=== PATIENT | male | born 1960 | race Caucasian/White ===

== ENCOUNTER 2021-08-14 09:50 | Outpatient (CLI) | payer MEDICARE, BC, SELFPAY | END 2021-08-14 09:51 | disposition home or self-care (01) | LOC: ANHAUDIO 09:52 | DX: H91.90 Unspecified hearing loss, unspecified ear (principal) | CPT/HCPCS: 99199 ==

== ENCOUNTER 2021-08-24 12:22 | Outpatient (RCR) | payer MEDICARE, BC, SELFPAY | END 2021-08-24 23:59 | disposition home or self-care (01) | LOC: ANHAUDIO 12:22 | DX: Z46.1 Encounter for fitting and adjustment of hearing aid (principal) | CPT/HCPCS: V5264 ==

== ENCOUNTER 2022-01-15 14:52 | Outpatient (RCR) | payer MEDICARE, BC, SELFPAY | END 2022-01-15 23:59 | disposition home or self-care (01) | LOC: ANHAUDIO 14:52 | PROVIDERS: Visit Provider Family Medicine | DX: Z46.1 Encounter for fitting and adjustment of hearing aid (principal) | CPT/HCPCS: 99199 ==

== ENCOUNTER 2023-07-09 10:28 | Emergency (ER) | payer MEDICARE, BC, SELFPAY ==
--- NOTE | ~2023-07-09 | XR_ITS ---
XR chest 2V INDICATION: Wheezing.] Heart rate. TECHNIQUE: 2 view chest. FINDINGS: No prior studies for comparison. There is mild bilateral interstitial prominence and peribronchial cuffing. There is no focal consoli dation, pleural effusion, or pneumothorax. The cardiomediastinal silhouette is normal. IMPRESSION: 1. Findings most consistent with bronchiolitis versus an atypical or viral pneumonia. Reviewed, dictated and finalized at location B. PROFESSOR IMPRESSION: 1. Findings most consistent with bronchiolitis versus an atypical or viral [facility].
[2023-07-09 10:33] VITALS: BP 100/66; PULSE 97; RESP 18; TEMP 36.4; O2SAT 98
[2023-07-09 13:04] VITALS: PULSE 95; RESP 18
[2023-07-09] MEDS: IPRATROPIUM BR 0.02% INH SOLN 0.5 MG/2.5 ML VIAL INHALATION (13:04)
[2023-07-09] MEDS: ALBUTEROL SULFATE NEB 2.5 MG/3 ML INH INHALATION (13:04)
[2023-07-09 13:16] VITALS: PULSE 98; RESP 18
--- NOTE | 2023-07-09 14:28 | ED.GENADULT ---
HPI - General Adult General Chief complaint: Upper Respiratory Infection Stated complaint: abnormal VS Time Seen by Provider: 07/09/23 12:32 History of Present Illness HPI narrative: Patient is a 62-year-old male who presents to the ER with reports of abnormal breathing. The nurse at his care facility noticed that he was wheezing more than typical today. Patient has Alzheimer's and Down syndrome and cannot communicate. There is no reports of recent fever or illness. He has not been coughing. His primary care doctor's office is not open today so they came here for further evaluation. Related Data Home Medications Medication Instructions Recorded Confirmed aspirin 81 mg tablet,delayed 81 mg PO DAILY 07/26/21 06/13/22 release (Adult Low Dose Aspirin) mometasone 0.1 % topical ointment 1 applic topical DAILY 07/26/21 06/13/22 guwfxyrk-reg-glkkm acid 0.4 1 tablet PO DAILY 07/26/21 06/13/22 mg-lycopene 300 mcg-lutein 250 mcg tablet (Jesse Gant) Allergies Allergy/AdvReac Type Severity Reaction Status Date / Time No Known Allergies Allergy Verified 07/03/23 13:03 Review of Systems Review of Systems: ROS unobtainable: Yes unobtainable due to mental status PMFSH Past Medical History Medical History Alzheimer's dementia Aphasia Down syndrome Incontinence of bowel Incontinence of urine SNHL (sensorineural hearing loss) Family History Family History Mother Hypertension Father Lung cancer Sibling Hypertension Social History Social History (Updated 07/03/23 @ 13:03 by Charis Cottrell) Social History: Single Smoking status: Never smoker Second hand tobacco smoke exposure: No Alcohol intake: never Substance use: never Substance use type: does not use Do You Feel Safe in your Home?: Yes Lack of Transportation: No Lack of Food: Never True Current Housing: I Have Housing Concerned About Future Housing: No Difficulty Paying Gas/Electric Bills: No Difficulty Paying for Meds: No Currently Unemployed: YES Education: Decline to Answer Difficulty w/ Childcare or Family Care: No Living arrangements: assisted living Occupation/Education: retired Gender identity (if verbalized by the patient): Male Sexual Orientation (if Verbalized by the Patient): Straight or Heterosexual Exam Narrative: GENERAL: Chronically ill-appearing, well-nourished, and in no acute distress. HEAD: Normocephalic, atraumatic. ENT: Mucous membranes moist. NECK: Supple. CHEST: Mild wheezing in all lung gonzalez however it seems to be referred upper respiratory rattling when listening to the trachea. No respiratory distress. HEART: Regular rate and rhythm. Normal peripheral pulses. ABDOMEN: Soft, nontender, nondistended. EXTREMITIES: Normal range of motion. No edema. NEURO: Alert and oriented x3. PSYCH: Normal mood and affect. Course Course Emergency Course: patient resting comfortably in a been ambulatory without hypoxia. He does have influenza. Will start on Tamiflu as well as a steroid burst and albuterol for bronchitis. Vital Signs Vital signs: Vital Signs Temperature 97.6 F 07/09/23 10:33 Pulse Rate 97 07/09/23 10:33 Respiratory Rate 18 07/09/23 10:33 Blood Pressure 100/66 07/09/23 10:33 Pulse Oximetry 98 07/09/23 10:33 Oxygen Delivery Room Air 07/09/23 10:33 Temperature 97.6 F 07/09/23 10:33 Pulse Rate 100 07/09/23 14:50 Respiratory Rate 20 07/09/23 14:50 Blood Pressure 100/66 07/09/23 10:33 Pulse Oximetry 96 07/09/23 14:50 Oxygen Delivery Room Air 07/09/23 13:30 Medical Decision Making Vital Signs Vital Signs: Vital Signs Temperature 97.6 F 07/09/23 10:33 Pulse Rate 97 07/09/23 10:33 Respiratory Rate 18 07/09/23 10:33 Blood Pressure 100/66 07/09/23 10:33 Pulse Oximetry 98 07/09/23 10:33
[2023-07-09 14:33] LABS: Influenza A QL RT-PCR Positive (Negative); Influenza B QL RT-PCR Negative (Negative); RSV RNA, RT-PCR Negative (Negative); SARS-CoV-2 RNA PCR Negative (Negative)
[2023-07-09 14:50] VITALS: PULSE 100; RESP 20; O2SAT 96
[2023-07-09 16:10] VITALS: BP 123/76; PULSE 60; RESP 16; O2SAT 99
== END 2023-07-09 16:10 | disposition home or self-care (01) ==
PROVIDERS: Emergency Provider Emergency Medicine; PCP Family Medicine
DX: J10.1 Influenza due to other identified influenza virus with other respiratory manifestations (principal); J40 Bronchitis, not specified as acute or chronic; G30.9 Alzheimer's disease, unspecified; F02.80 Dementia in other diseases classified elsewhere, unspecified severity, without behavioral disturbance, psychotic disturbance, mood disturbance, and anxiety; Q90.9 Down syndrome, unspecified; R47.01 Aphasia; Z79.82 Long term (current) use of aspirin; Z20.822 Contact with and (suspected) exposure to COVID-19
CPT/HCPCS: 71046; 87637; 94640; 94664; 99283

== ENCOUNTER 2023-07-31 09:35 | Outpatient (RCR) | payer MEDICARE, BC, SELFPAY ==
--- NOTE | 2023-07-31 10:30 | PTOPEVAL1 ---
Assessment and note entered by [facility] Evaluation Information Assessment Status Evaluation Diagnosis functional decline, generalized weakness Onset 07/17/23 Subjective Information Pt. caregiver, Fanta, is present. Pt. is non- verbal. She reports that the pt. is new to placement in an assisted living facility that provides 24 hour care. The caregiver reports that the pt. is mainly present at therapy today to determine his level of safety and if any equipment is required for his care. She states that the pt. is not currently using a walker or a cane. She states that as a caregiver she is assisting with bathing and dressing to guide him. She reports that during the day pt. activity includes playing with legos. She reports that they have to monitor pt. eating to be sure that he does not eat too fast. She reports that the doctors concern was to establish a baseline of the pt. current functional status. Reported Pain Level Pain Score 0: Self Report Assessment PT Clinical Summary Mr. Wick enters the clinic for evaluation of mobility with a PMH including alzheimers, down syndrome and aphasia. He currently resides in a facility that provides 24 hour care. Pt. currently presents with high fall risk according to the [facility]. Lower extremity strength is adequate, however accurate assessment is difficult to attain due to pt. inability to follow basic instruction. Currently recommend pt. continue with 24 hour care and will require assistance during ambulation to assist with preventing falls. He would not benefit from use of an AD, as I feel pt. will be unable to safely comprehend properly using a walker or cane. At this time the caregiver has been educated on suggested proper care techniques and pt. current functional status. He will be discharged from our care at this time . Plan of Care Treatment Frequency and D/C from PT as pt. is functioning at baseline and Duration has adequate care to reduce fall risk. These treatments will address the objective and functional deficits as defined above. The patient will be advanced safely and appropriately in order for the patient to progress towards his/her prior level of function. Additional exercises will be introduced and as well as a comprehensive home exercise program upon discharge, if needed, ?to ensure carryover of functional gains achieved in the clinic. This treatment plan has been reviewed and agreement upon by the patient.
--- NOTE | 2023-07-31 11:26 | OTOPDC ---
Assessment and note entered by BALAJI Lanza/Char, CHT Evaluation Report & Discharge Summary Diagnosis Alzheimer's, Dementia, Down syndrome, Aphasia, Dysphagia Subjective Information Pt. caregiver, Fanta, is present to provide history. Pt. is non-verbal. She reports that the pt. is new to placement in an assisted living home that provides 24 hour care. The caregiver reports that the pt. is mainly present at therapy today to determine his level of safety and care required. She states that the pt. is not currently using a walker or a cane. She states that as a caregiver she is assisting with bathing and dressing to guide him, mainly providing cues. He does his own belt, zippers, and buttons. She reports that during the day pt. activity includes playing with legos and other toys. She reports that they have to monitor pt. eating to be sure that he does not eat too fast, but otherwise does well with self feeding. She reports that the doctors concern was to establish a baseline of the pt. current functional status. Pt's home set up is handicap accessible. Wide doors, grab bars, and all appropriate DME in the bathroom. Reported Pain Level Pain Score 0: Self Report Assessment OT Clinical Summary Patient evaluated today by OT. He presents by one of his caregivers who provides all subjective information and the patient's history. Discussed proper DME for ADL safety and independence, which the home has all necessary equipment and the patient uses it appropriately per caregiver's report. UE strength and fine motor coordination is WFL for ADLs and patient's leisure interest of playing with legos. No further skilled OT services indicated at this time. Thank you for this referral. Plan of Care OT Services Indicated No
--- NOTE | 2023-07-31 14:23 | STOPEVDC ---
Assessment and note entered by Deneen Weir, PAIL TESTER Thank you for referring Ben Wick to [facility].? An evaluation has been completed. No further treatment is needed. Evaluation Information Assessment Status Evaluation Assessment Status Evaluation Assessment Status Evaluation Subjective Information Getting a baseline. [facility]. Reported Pain Level Pain Score 0: Self Report Pain Score 0: Self Report Pain Score 0: Self Report Assessment ST Clinical Summary COMMUNICATION EVALUATION Patient is a 62 year old male with history of Down Syndrome, aphasia, and dysphagia. He recently became a resident of [place], [place], in March and Fanta, caregiver, reported patient receives 24 hour caregiving at this location. Fanta reports patient is being seen by Speech Therapy to determine current communication skills and if he would benefit from additional therapy. Today the patient participated in yes/no questions, generally responding with yeah to most questions. He was offered real common objects and he demonstrated good understanding of how to use each object. Fanta reports that because patient has hearing issues, he requires remediation through hearing aids. She indicated that she is able to verbally instruct the patient for some activities but with others, she needs to demonstrate a visual prompt such as a hand gesture and occasionally has to offer hand over hand assistance for patient to perform the activity. She noted that if patient does not want to complete an activity, he will stand still, not move, or hang his head and this lets her know that he is not interested in completing the activity. Therapist instructed Fanta in the use of basic communication skills to encourage patient to either verbally or gesturally communicate including the use of more/all done, yes/no, and either/or choices. She voiced understanding of suggestions to encourage increased verbal and gestural communication. Plan of Care ST Services Indicated No
== END 2023-07-31 14:56 | disposition home or self-care (01) ==
LOC: ANHPT 09:35
PROVIDERS: PCP Family Medicine; Visit Provider Family Medicine
DX: G30.9 Alzheimer's disease, unspecified (principal); R47.01 Aphasia; R13.10 Dysphagia, unspecified; F02.80 Dementia in other diseases classified elsewhere, unspecified severity, without behavioral disturbance, psychotic disturbance, mood disturbance, and anxiety; Q90.9 Down syndrome, unspecified
CPT/HCPCS: 92523; 97162; 97165

== ENCOUNTER 2023-08-25 08:21 | Emergency (ER) | payer MEDICARE, BC, SELFPAY ==
--- NOTE | ~2023-08-25 | XR_ITS ---
Right elbow Technique: AP, oblique, and lateral views were obtained. Clinical History: Pain Findings: No acute fracture or dislocation is seen. Osseous alignment is anatomic. There is apparent advanced osteoarthritic stable joint, with prominent bony spurring, most evident on lateral view.. Pr obable small joint effusion noted. Impression: Advanced osteoarthritis of the elbow joint. Probable small joint effusion. This could be reactive due to the severe osteoarthritis, however a rad iographically occult radial head fracture is not completely excluded. Correlate clinically for acute trauma/acute pain versus chronic pain. Reviewed, dictated and finalized at location . [employer]MENT REPAIRER Impression: Advanced osteoarthritis of the elbow joint. Probable small joint effusion. This could be reactive due to the severe osteoar thritis, however a radiographically occult radial head fracture is not complete ly excluded. Correlate clinically for acute trauma/acute pain versus chronic pa in.
[2023-08-25 08:24] VITALS: BP 129/85; PULSE 74; RESP 16; TEMP 36.8; O2SAT 100
--- NOTE | 2023-08-25 09:08 | ED.EXTPRO ---
HPI - Extremity Problem General Chief complaint: Extremity Problem,Nontraumatic Stated complaint: R elbow swelling/pain Time Seen by Provider: 08/25/23 08:55 History of Present Illness HPI Narrative: Patient is a 62-year-old male who presents to the ER with right elbow pain and swelling. Patient has Down syndrome and dementia and cannot provide a history. One of his caregivers is here. There is no reports of a fall or injury from yesterday but it was noticed that his elbow was swollen today and that he had limited function so he is brought here. Related Data Home Medications Medication Instructions Recorded Confirmed aspirin 81 mg tablet,delayed 81 mg PO DAILY 07/26/21 07/17/23 release (Adult Low Dose Aspirin) mometasone 0.1 % topical ointment 1 applic topical DAILY 07/26/21 07/17/23 wjeqjyct-tnq-tnhhd acid 0.4 1 tablet PO DAILY 07/26/21 07/17/23 mg-lycopene 300 mcg-[facility] Allergies Allergy/AdvReac Type Severity Reaction Status Date / Time No Known Allergies Allergy Verified 07/17/23 11:13 [facility] Past Medical History Medical History Alzheimer's dementia Aphasia Down syndrome Incontinence of bowel Incontinence of urine SNHL (sensorineural hearing loss) Family History Family History Mother Hypertension Father Lung cancer Sibling Hypertension Social History Social History Social History: Single Smoking status: Current some day smoker Second hand tobacco smoke exposure: No Alcohol intake: never Substance use: never Substance use type: does not use Do You Feel Safe in your Home?: Yes Lack of Transportation: No Lack of Food: Never True Current Housing: I Have Housing Concerned About Future Housing: No Difficulty Paying Gas/Electric Bills: No Difficulty Paying for Meds: No Currently Unemployed: YES Education: Decline to Answer Difficulty w/ Childcare or Family Care: No Living arrangements: assisted living Occupation/Education: retired Gender identity (if verbalized by the patient): Male Sexual Orientation (if Verbalized by the Patient): Straight or Heterosexual Exam Narrative: GENERAL: Well-appearing, well-nourished, and in no acute distress. HEAD: Normocephalic, atraumatic. ENT: Mucous membranes moist. CHEST: Clear to auscultation. No respiratory distress. HEART: Regular rate and rhythm. Normal peripheral pulses. EXTREMITIES: the right elbow effusion with limited range of motion tenderness over the radial head. No erythema. No olecranon bursitis. Normal sensation and pulses distally. NEURO: Awake and alert, at neurologic baseline. PSYCH: Normal mood and affect. Course Course Emergency Course: Patient placed in sling. Caregiver educated. Discharge. Vital Signs Vital signs: Vital Signs Temperature 98.2 F 08/25/23 08:24 Pulse Rate 74 08/25/23 08:24 Respiratory Rate 16 08/25/23 08:24 Blood Pressure 129/85 08/25/23 08:24 Pulse Oximetry 100 08/25/23 08:24 Temperature 98.2 F 08/25/23 08:24 Pulse Rate 78 08/25/23 10:57 Respiratory Rate 18 08/25/23 10:57 Blood Pressure 132/85 08/25/23 10:57 Pulse Oximetry 99 08/25/23 10:57 MDM - Extremity (Nontraumatic) Imaging Data Radiologist's impression: ITS Impressions Elbow X-Ray 08/25/23 09:20 Impression: Advanced osteoarthritis of the elbow joint. Probable small joint effusion. This could be reactive due to the severe osteoarthritis, however a radiographically occult radial head fracture is not completely excluded. Correlate clinically for acute trauma/acute pain versus chronic pain. Discharge Plan Discharge Clinical Impression: Effusion of elbow joint, right Patient Disposition: Home, Self-Care Condition: Stable Instruc
[2023-08-25 10:57] VITALS: BP 132/85; PULSE 78; RESP 18; O2SAT 99
== END 2023-08-25 10:59 | disposition home or self-care (01) ==
PROVIDERS: Emergency Provider Emergency Medicine; PCP Family Medicine
DX: M25.421 Effusion, right elbow (principal); Q90.9 Down syndrome, unspecified; G30.9 Alzheimer's disease, unspecified; F02.80 Dementia in other diseases classified elsewhere, unspecified severity, without behavioral disturbance, psychotic disturbance, mood disturbance, and anxiety; H90.5 Unspecified sensorineural hearing loss; R15.9 Full incontinence of feces; R32 Unspecified urinary incontinence; Z79.82 Long term (current) use of aspirin; M19.021 Primary osteoarthritis, right elbow
CPT/HCPCS: 73080; 99283; A4565

== ENCOUNTER 2023-08-28 11:21 | Outpatient (CLI) | payer MEDICARE, BC, SELFPAY ==
[2023-08-28 11:41] LABS: Basophils Absolute Auto 0.1 K/mm3 (0.0-0.1); Basophils Percent Auto 1.3 % (0.2-1.2); Eosinophils Absolute Auto 0.1 K/mm3 (0-0.3); Eosinophils Percent Auto 1.3 % (0-4.4); Hematocrit 42.9 % (42.0-52.0); Hemoglobin 14.2 g/dL (14.0-18.0); Immature Granulocyte Absolute 0.01 K/mm3 (0.00-0.031); Immature Granulocyte Percent A 0.2 % (0-0.5); Lymphocytes Absolute Auto 1.34 K/mm3 (0.9-3.2); Lymphocytes Percent Auto 23.9 % (18.3-44.2); Mean Corpuscular HGB Conc 33.1 g/dl (32-36); Mean Corpuscular Hemoglobin 31.6 pg (26-34); Mean Corpuscular Volume 95.3 fl (80-100); Mean Platelet Volume 9.7 fl (7.4-10.4); Monocytes Absolute Auto 0.8 K/mm3 (0.1-0.6); Monocytes Percent Auto 13.4 % (2.6-8.5); Neutrophils Absolute Auto 3.4 K/mm3 (1.3-6.7); Neutrophils Percent Auto 59.9 % (45.5-73.1); Platelet Count Result 268 k/mm3 (150-375); White Blood Count 5.6 K/mm3 (4.5-10.0)
[2023-08-28 12:03] LABS: Alanine Aminotransferase 22 U/L (6-50); Albumin Level 3.7 g/dL (3.5-5.1); Alkaline Phosphatase 93 U/L (38-126); Anion Gap 3 mmol/L (8-16); Aspartate Amino Transferase 39 U/L (17-59); Bilirubin,Total 0.4 mg/dL (0.2-1.3); Blood Urea Nitrogen 25 mg/dL (9-20); Carbon Dioxide 29 mmol/L (22-30); Chloride 105 mmol/L (98-107); Estimated Glomerular Filt Rate > 60; Glucose 102 mg/dL (65-110); Potassium 4.4 mmol/L (3.4-5.0); Sodium 137 mmol/L (137-145); Uric Acid 3.7 mg/dL (3.5-8.5)
[2023-08-28 12:14] LABS: Erythrocyte Sedimentation Rate 61 mm/hr (0-20)
== END 2023-08-28 11:22 | disposition home or self-care (01) ==
LOC: ANHLAB 11:26
PROVIDERS: PCP Family Medicine; Visit Provider Family Medicine
DX: M25.429 Effusion, unspecified elbow (principal); E79.0 Hyperuricemia without signs of inflammatory arthritis and tophaceous disease
CPT/HCPCS: 36415; 80053; 84550; 85025; 85652

== ENCOUNTER 2023-09-26 10:14 | Emergency (ER) | payer MEDICARE, BC, SELFPAY ==
[2023-09-26 10:31] VITALS: BP 127/70; PULSE 66; RESP 18; TEMP 36.3; O2SAT 100
--- NOTE | 2023-09-26 11:11 | ED.GENADULT ---
HPI - General Adult General Chief complaint: Urogenital-Male Stated complaint: moaning when Urinating Time Seen by Provider: 09/26/23 11:11 Source: other (caregiver) Mode of arrival: ambulatory Limitations: dementia History of Present Illness HPI narrative: 62 y/o male with hx Down's syndrome and dementia presented with multi care technician from [facility]isted, for c/o 'moaning and groaning, and holding his private parts when urinating.' Onset one week. Caregiver states he had diarrhea last week after constipation, but she has not been with him for several days and no other complaints were reported to her. Denies vomiting, fever, lethargy, cough or decreased appetite. Related Data Home Medications Medication Instructions Recorded Confirmed aspirin 81 mg chewable tablet 81 mg PO DAILY 09/26/23 09/26/23 lovastatin 20 mg tablet 20 mg PO HS 09/26/23 09/26/23 memantine 5 mg tablet 10 mg PO BID 09/26/23 09/26/23 Allergies Allergy/AdvReac Type Severity Reaction Status Date / Time No Known Allergies Allergy Verified 09/26/23 10:47 Review of Systems Review of Systems: CONSTITUTIONAL: Denies fever or sweats. EYES: Denies redness, or discharge. ENT: Denies rhinorrhea, congestion CARDIOVASCULAR: Denies chest pain, palpitations, or edema. RESPIRATORY: Denies cough or dyspnea. GASTROINTESTINAL: Denies abdominal pain, nausea, vomiting, or diarrhea. GENITOURINARY: Denies dysuria or hematuria. Reports groan with an episode of urination. SKIN: Denies rash, itching, or wounds. MUSCULOSKELETAL: Denies apparent back pain, joint pain, or myalgia. NEUROLOGIC: Denies headache HPI and ROS per caregiver, pt is unable to provide information All systems reviewed & are unremarkable except as noted in HPI and below PMFSH Past Medical History Medical History (Updated 09/26/23 @ 12:46 by Gissel Magana, JASMIN) Dementia Down syndrome Comments At time of signature, I have reviewed and agree with nursing past medical, surgical, social and family history unless otherwise noted. Please see nursing chart for further information. There is no relevant family history pertinent to the presenting complaint Exam Narrative: GENERAL: Well-appearing, well-nourished, and in no acute distress. EYES: EOMI. No redness or drainage. Conjunctivae normal. ENT: Mucous membranes pink and moist. No rhinorrhea. NECK: Normal AROM. CHEST: No respiratory distress. Clear to auscultation. HEART: Regular rate and rhythm. No murmur appreciated. Normal peripheral pulses. ABDOMEN: Soft, nontender, nondistended, normal active bowel sounds. EXTREMITIES: Normal range of motion. No edema. SKIN: Warm, dry, no rash. Capillary refill normal. Normal skin turgor. NEURO: Gait steady, holds caregiver hand Course Course Emergency Course: Patient is aware of diagnosis, understands and agrees to treatment plan. Anticipatory guidance given. Patient agrees to follow-up as directed and is aware of reasons to seek care at the emergency department. Portions of this record may have been created with voice recognition software Level of Care: Express Care Visit Vital Signs Vital signs: Vital Signs Temperature 97.3 F L 09/26/23 10:31 Pulse Rate 66 09/26/23 10:31 Respiratory Rate 18 09/26/23 10:31 Blood Pressure 127/70 09/26/23 10:31 Pulse Oximetry 100 09/26/23 10:31 Oxygen Delivery Room Air 09/26/23 10:31 Temperature 97.3 F L 09/26/23 10:31 Pulse Rate 66 09/26/23 10:31 Respiratory Rate 18 09/26/23 10:31 Blood Pressure 127/70 09/26/23 10:31 Pulse Oximetry 100 09/26/23 10:31 Oxygen Delivery Room Air 09/26/23 10:31 Medical Decision Making MDM Narrative Medical decision making narrative: Negative urine, reviewed with pt's caregiver. Discussed physical exam findings and other possible etiologies that would require ER visit for further evaluation. Caregiver states they were only concerned with uti and deny any other concer
== END 2023-09-26 11:24 | disposition home or self-care (01) ==
PROVIDERS: Emergency Provider Nurse Practitioner Family; PCP Family Medicine
DX: Z71.1 Person with feared health complaint in whom no diagnosis is made (principal); F03.90 Unspecified dementia, unspecified severity, without behavioral disturbance, psychotic disturbance, mood disturbance, and anxiety; Q90.9 Down syndrome, unspecified; Z79.82 Long term (current) use of aspirin
CPT/HCPCS: 81003; 87086; 87088; 99213; G0463

== ENCOUNTER 2023-11-24 10:42 | Outpatient (CLI) | payer MEDICARE, SELFPAY ==
--- NOTE | ~2023-11-24 | XR_ITS ---
EXAMINATION: XR chest 2V DATE: 11/24/2023 11:08 INDICATION: Dyspnea and cough TECHNIQUE: PA and lateral views of the chest were obtained. COMPARISON: Chest radiograph dated 07/09/2023 FINDINGS: Mild opacities which appear predominantly linear at the right lung base and favor atelectasis over pn eumonia. No pulmonary edema, pleural effusion or pneumothorax. The cardiomediastinal silhouette is no rmal. Mild to moderate thoracic spondylosis with lower thoracic predominance. Mild lumbar dextrocurva ture with additional moderate spondylosis. IMPRESSION: 1. Mild opacities at the right lung base and favor atelectasis over pneumonia. Reviewed, dictated and finalized at location B.
== END 2023-11-24 10:43 | disposition home or self-care (01) ==
PROVIDERS: PCP Family Medicine; Visit Provider Physician Assistant
DX: R06.00 Dyspnea, unspecified (principal); R91.8 Other nonspecific abnormal finding of lung field
CPT/HCPCS: 71046

== ENCOUNTER 2023-12-05 12:05 | Outpatient (CLI) | payer MEDICARE, MEDICAID, SELFPAY ==
--- NOTE | ~2023-12-05 | US_ITS ---
EXAMINATION: US soft tissue head and neck DATE: 12/05/2023 12:57 INDICATION: Chronic palpable left submandibular mass TECHNIQUE: Multiple grayscale and Doppler ultrasound images of the region of concern at the submandib ular left neck were obtained. COMPARISON: None FINDINGS: There is a 4.2 x 1.8 x 1.9 cm ovoid mass in the subcutaneous fat at the region of concern. The mass i s isoechoic and with similar echotexture and internal septated architecture as the surrounding subcut aneous fat which would be most consistent with a lipoma. No other abnormal masses or fluid collection s identified. IMPRESSION: 1. Nonspecific 4.2 x 1.8 x 1.9 cm subcutaneous mass at the region of concern with appearance most con sistent with and statistically most likely to represent a lipoma. Reviewed, dictated and finalized at location A. IMPRESSION: 1. Nonspecific 4.2 x 1.8 x 1.9 cm subcutaneous mass at the region of concern wi th appearance most consistent with and statistically most likely to represent a lipoma.
== END 2023-12-05 12:06 | disposition home or self-care (01) ==
PROVIDERS: PCP Family Medicine; Visit Provider Physician Assistant
DX: R22.1 Localized swelling, mass and lump, neck (principal)
CPT/HCPCS: 76536

== ENCOUNTER 2023-12-09 10:04 | Outpatient (CLI) | payer MEDICARE, MEDICAID, SELFPAY ==
--- NOTE | ~2023-12-09 | CT_ITS ---
EXAMINATION: CT abdomen pelvis wo con DATE: 12/09/2023 10:53 INDICATION: Right abdominal tenderness. TECHNIQUE: Computed tomography (CT) of the abdomen and pelvis was performed without intravenous contr ast. Automated exposure control and iterative reconstruction technique were employed. The dose-length product was 585.41 mGy-cm. COMPARISON: None. FINDINGS: The visualized portions of the lung bases demonstrate mild atelectasis. No pleural effusion . The heart size is normal. There are coronary artery calcifications. There is a small pericardial ef fusion. The liver, spleen, pancreas, adrenal glands, and kidneys are normal. There is no urolithiasis . There is diffuse bladder wall thickening, likely secondary to chronic outlet obstruction from the m ildly enlarged prostate. There are no dilated loops of bowel. The appendix is normal. There are no pa thologically enlarged lymph nodes. There is no free intraperitoneal fluid. There is a left inguinal h ernia containing fat. There is a right inguinal hernia containing fat. There is severe thoracic and l umbar spondylosis. There is a compression fracture of T12 with 3/5 loss of height centrally. There is thoracolumbar dextroscoliosis. IMPRESSION: 1. Bilateral inguinal hernias containing fat. 2. Age-indeterminate T12 compression fracture. Reviewed, dictated and finalized at location A.
== END 2023-12-09 10:05 | disposition home or self-care (01) ==
PROVIDERS: PCP Family Medicine; Visit Provider Physician Assistant
DX: K40.20 Bilateral inguinal hernia, without obstruction or gangrene, not specified as recurrent (principal); S22.080A Wedge compression fracture of T11-T12 vertebra, initial encounter for closed fracture; X58.XXXA Exposure to other specified factors, initial encounter
CPT/HCPCS: 74176

== ENCOUNTER 2023-12-11 15:11 | Emergency (ER) | payer MEDICARE, MEDICAID, SELFPAY ==
[2023-12-11] VITALS (13 sets, daily range): BP systolic 104–133; BP diastolic 74–94; PULSE 61–94; RESP 9–20; TEMP 36.3–36.5; O2SAT 94–100
--- NOTE | ~2023-12-11 | CT_ITS ---
EXAMINATION: CT abdomen pelvis w con DATE: 12/11/2023 17:18 INDICATION: Left lower quadrant abdominal pain. TECHNIQUE: Computed tomography (CT) of the abdomen and pelvis was performed with 100 mL Omnipaque 350 intravenous contrast. Automated exposure control and iterative reconstruction technique were employe d. The dose-length product was 706.75 mGy-cm. COMPARISON: CT abdomen and pelvis 12/09/2023 FINDINGS: The visualized portions of the lung bases demonstrate mild atelectasis. No pleural effusion . The heart size is normal. There is a small pericardial effusion. The liver, spleen, gallbladder, pa ncreas, and adrenal glands are normal. There is a 4 mm cyst in right kidney. Left kidney is normal. T here are bilateral inguinal hernias containing fat. There is diffuse bladder wall thickening, likely secondary to chronic outlet obstruction from the mildly enlarged prostate. There are no dilated loops of bowel. The appendix is normal. There are no pathologically enlarged lymph nodes. There is no free intraperitoneal fluid. There is thoracolumbar dextroscoliosis and severe spondylosis. There is a com pression fracture of T12. IMPRESSION: 1. Bilateral inguinal hernias containing fat. 2. Age-indeterminate T12 compression fracture, stable from 12/09/2023. 3. Stable small pericardial effusion. Reviewed, dictated and finalized at location A.
--- NOTE | 2023-12-11 15:44 | ED.ABDPAIN ---
HPI - Abdominal Pain General Chief Complaint: Abdominal Pain Stated Complaint: bloated Time Seen by Provider: 12/11/23 15:19 Source: other (sister in law & caregiver) Limitations: other (baseline cognition) History of Present Illness HPI narrative: 63-year-old male with past medical history Down's syndrome presents with concern for possible abdominal pain. Patient had been diagnosed with a pneumonia via Xray approximately 11/22 and was on a course of antibiotics. He subsequently developed diarrhea. Stools have started to return to formed, LBM 2 hours ago and formed. Non bloody. He has been grabbing his left lower abdomen today. Had been prescribed 650mg acetaminophen PRN as well as Gas Ex. No prior abdominal surgeries. Related Data Home Medications Medication Instructions Recorded Confirmed aspirin 81 mg tablet,delayed 81 mg PO DAILY 07/26/21 11/24/23 release (Adult Low Dose Aspirin) gobfesji-hry-bcixj acid 0.4 1 tablet PO DAILY 07/26/21 11/24/23 mg-lycopene 300 mcg-lutein 250 mcg tablet ([facility]) aspirin 81 mg chewable tablet 81 mg PO DAILY 09/26/23 11/24/23 lovastatin 20 mg tablet 20 mg PO HS 09/26/23 11/24/23 memantine 5 mg tablet 10 mg PO BID 09/26/23 11/24/23 Allergies Allergy/AdvReac Type Severity Reaction Status Date / Time No Known Allergies Allergy Verified 12/05/23 10:59 [facility] Past Medical History Medical History Alzheimer's dementia Aphasia Dementia Down syndrome Elbow swelling Incontinence of bowel Incontinence of urine Poor vision Right arm cellulitis SNHL (sensorineural hearing loss) Family History Family History Mother Hypertension Father Lung cancer Sibling Hypertension Social History Social History Social History: Single Smoking status: Never smoker Second hand tobacco smoke exposure: No Alcohol intake: never Substance use: never Substance use type: does not use Do You Feel Safe in your Home?: Yes Lack of Transportation: No Lack of Food: Never True Current Housing: I Have Housing Concerned About Future Housing: No Difficulty Paying Gas/Electric Bills: No Difficulty Paying for Meds: No Currently Unemployed: YES Education: Decline to Answer Difficulty w/ Childcare or Family Care: No Living arrangements: prison Occupation/Education: retired Gender identity (if verbalized by the patient): Male Sexual Orientation (if Verbalized by the Patient): Straight or Heterosexual Exam Narrative: GENERAL: Well-appearing, well-nourished, Downs facies. Agitated, , shouting intermittently HEAD: Normocephalic, atraumatic. EYES: Non injected, non icteric ENT: Nares clear, no rhinorrhea or epistaxis. NECK: Supple. CHEST: Speaking in full sentences. No respiratory distress. HEART: Regular rate and rhythm. . ABDOMEN: Soft. Mild tenderness to palpation though generalized. Not peritoneal. GROIN: No overlying skin changes of inguinal creases which are without prominent lymphadenopathy. EXTREMITIES: Normal range of motion. No edema. SKIN: Warm, dry, no rash. No overlying skin changes on abdomen. NEURO: No focal deficits. Alert but non verbal except occasionally saying No. PSYCH: Normal mood and affect. Course Vital Signs Vital signs: Vital Signs Temperature 97.3 F L 12/11/23 15:15 Pulse Rate 94 12/11/23 15:15 Respiratory Rate 16 12/11/23 15:15 Blood Pressure 133/82 12/11/23 15:15 Pulse Oximetry 97 12/11/23 15:15 Oxygen Delivery Room Air 12/11/23 15:15 Temperature 97.7 F 12/11/23 15:28 Pulse Rate 67 12/11/23 18:01 Respiratory Rate 9 L 12/11/23 18:01 Blood Pressure 119/94 H 12/11/23 18:01 Pulse Oximetry 96 12/11/23 18:01 Oxygen Delivery Room Air 12/11/23 15:28 MDM - Abdominal Pain MDM Narrative Medical decision
[2023-12-11] MEDS: SODIUM CHLORIDE 0.9% IV 1,000 ML 999 ML IV CONT (15:55)
[2023-12-11] MEDS: MORPHINE SULFATE (*CRX) 4 MG/ML INJ IV PUSH (15:56)
[2023-12-11 16:00] LABS: Basophils Absolute Auto 0.1 K/mm3 (0.0-0.1); Basophils Percent Auto 0.9 % (0.2-1.2); Eosinophils Percent Auto 0.4 % (0-4.4); Hematocrit 40.9 % (42.0-52.0); Hemoglobin 13.7 g/dL (14.0-18.0); Immature Granulocyte Absolute 0.03 K/mm3 (0.00-0.031); Immature Granulocyte Percent A 0.4 % (0-0.5); Lymphocytes Absolute Auto 1.58 K/mm3 (0.9-3.2); Lymphocytes Percent Auto 19.6 % (18.3-44.2); Mean Corpuscular HGB Conc 33.5 g/dl (32-36); Mean Corpuscular Hemoglobin 30.9 pg (26-34); Mean Corpuscular Volume 92.3 fl (80-100); Mean Platelet Volume 9.7 fl (7.4-10.4); Monocytes Percent Auto 12.3 % (2.6-8.5); Neutrophils Absolute Auto 5.4 K/mm3 (1.3-6.7); Neutrophils Percent Auto 66.4 % (45.5-73.1); Platelet Count Result 236 k/mm3 (150-375); Red Blood Count 4.43 M/mm3 (4.6-6.20); Red Cell Distribution Width 15.6 % (11.5-14.5); White Blood Count 8.1 K/mm3 (4.5-10.0)
[2023-12-11 16:10] LABS: Alanine Aminotransferase 24 U/L (6-50); Albumin Level 3.8 g/dL (3.5-5.1); Alkaline Phosphatase 76 U/L (38-126); Anion Gap 5 mmol/L (4-12); Aspartate Amino Transferase 36 U/L (17-59); Bilirubin,Total 0.5 mg/dL (0.2-1.3); Blood Urea Nitrogen 21 mg/dL (9-20); Calcium 8.4 mg/dL (8.4-10.2); Carbon Dioxide 25 mmol/L (22-30); Chloride 102 mmol/L (98-107); Estimated CRCL calculation 53 ml/min; Estimated Glomerular Filt Rate > 60; Glucose 121 mg/dL (65-110); Lipase 80 U/L (23-300); Magnesium 1.9 mg/dL (1.6-2.3); Potassium 4.5 mmol/L (3.4-5.0); Sodium 132 mmol/L (137-145)
[2023-12-11 16:11] LABS: Prothrombin Time 13.9 Seconds (11.1-14.7)
[2023-12-11 16:12] LABS: Partial Thromboplastin Time 31.8 Seconds (22.3-36.8)
[2023-12-11] MEDS: HALOPERIDOL LACTATE 5 MG/ML VIAL 2.5 MG IV PUSH ×2 (16:37→16:55)
[2023-12-11] MEDS: LORazepam INJ (*CRX) 2 MG/ML VIAL 1 MG IV PUSH ×2 (16:39→16:56)
[2023-12-11 18:28] LABS: Appearance Urine Clear (Clear); Bacteria Urine None Seen /hpf; Bilirubin Urine Negative (Negative); Blood Urine Non-Hemolyzed Trace (Negative); Color Urine Yellow (Yellow); Glucose Urine UA Negative (Negative); Ketones Urine Negative (Negative); Leukocyte Esterase Ur Negative LEU/UL (Negative); Nitrate Urine Negative (Negative); Non Pathogenic Casts 0-2; Protein Urine Negative (Negative); Squamous Epithelial Cell Urine None Seen /hpf (Few); Urobilinogen Urine 0.2 mg/dL (<2.0); WBC Urine 0-5 /hpf (0-3); pH Urine 6.5 (5.0-9.0)
[2023-12-11 18:31] LABS: Add Urine Microscopic? YES
== END 2023-12-11 20:30 | disposition home or self-care (01) ==
PROVIDERS: Emergency Provider Student in an Organized Health Care Education/Training Program; PCP Family Medicine
DX: R10.32 Left lower quadrant pain (principal); K40.20 Bilateral inguinal hernia, without obstruction or gangrene, not specified as recurrent; D64.9 Anemia, unspecified; E87.1 Hypo-osmolality and hyponatremia; I31.39 Other pericardial effusion (noninflammatory); R31.29 Other microscopic hematuria; M48.54XA Collapsed vertebra, not elsewhere classified, thoracic region, initial encounter for fracture; F02.80 Dementia in other diseases classified elsewhere, unspecified severity, without behavioral disturbance, psychotic disturbance, mood disturbance, and anxiety; G30.9 Alzheimer's disease, unspecified; H90.5 Unspecified sensorineural hearing loss; R47.01 Aphasia; Q90.9 Down syndrome, unspecified; Z87.01 Personal history of pneumonia (recurrent); Z79.899 Other long term (current) drug therapy; Z79.82 Long term (current) use of aspirin
CPT/HCPCS: 36415; 74177; 80053; 81001; 83605; 83690; 83735; 85025; 85610; 85730; 96361; 96374; 96375; 99284; J1630; J2060; J2270; J7030; Q9967